=== PATIENT | female | born 1970 | race Caucasian/White ===

== ENCOUNTER 2020-06-05 02:42 | Emergency (ER) | payer MEDICARE, MEDICAID ==
[~2020-06-05] VITALS: Ht 162.6 cm; Wt 60.9 kg
[~2020-06-05 02:42] MED LIST: CYCL-1 PO; HYDR-3965 PO; PSEU120T55 PO; ZOF4T PO
--- NOTE | 2020-06-05 02:49 | NUR ---
ELIZABETH [phone] Addendum: 06/05/20 at 0249 by DIANA [phone]
--- NOTE | 2020-06-05 03:22 | NUR ---
patient assisted to bsc to void. bruise noted to left buttock.
[2020-06-05] MEDS ORDERED: morphine 4 MG/ML inj SYRINge IM ONE (03:40)
--- NOTE | 2020-06-05 04:04 | NUR ---
PATIENTS CO-CONSERVATOR, SUSAN NICHOLSON, [phone], CALLING FOR UPDATE. SHE REPORTS PT WITH A DEVELOPMENT DELAY. DR. RASMUSSEN UPDATED.
--- NOTE | 2020-06-05 04:12 | NUR ---
CONSERVATOR, FRANCO, BROUGHT BACK TO PT'S ROOM. STATES PT HAS 24 HR CAREGIVER AND THAT PT HAS BEEN WEAK LATELY AND HAS FALLEN TWICE TODAY. THEY ARE WORKING ON GETTING HER A WC SHE ONLY HAS A WALKER.
[2020-06-05 04:16] VITALS: BP 158/89
--- NOTE | 2020-06-05 04:39 | NUR ---
PT WITH UNSTEADY ASYMMETRIC GAIT AND HER LEFT LEG IS "NOT WORKINIG RIGHT" PER PATIENT. CONSERVATOR STATES HER GAIT IS MUCH WORSE DURING THIS GAIT TEST. DR. RASMUSSEN AWARE.
--- NOTE | 2020-06-05 04:52 | NUR ---
SUSAN REPORTS PT HAD HEAD SCANS (UNK IF CT OR MRI) AND POSSIBLY ADTL AREAS OF THE BODY IMAGED, ABOUT 3 OR 4 WEEKS AGO. SHE LAST SAW DR. MAURICE LAST WEEK AND HAS A PALLIATIVE CARE RN WHO VISIT HER HOME EVERY THURSDAY. DR. RASMUSSEN UPDATED.
== END 2020-06-05 05:32 | disposition home or self-care (01) ==
LOC: ER 02:42
DX: S30.0XXA Contusion of lower back and pelvis, initial encounter (principal); C50.919 Malignant neoplasm of unspecified site of unspecified female breast; C79.31 Secondary malignant neoplasm of brain; G89.29 Other chronic pain; M25.551 Pain in right hip; I10 Essential (primary) hypertension; J44.9 Chronic obstructive pulmonary disease, unspecified; K21.9 Gastro-esophageal reflux disease without esophagitis; M19.90 Unspecified osteoarthritis, unspecified site; Z90.710 Acquired absence of both cervix and uterus; Z98.890 Other specified postprocedural states; Z91.030 Bee allergy status; Z88.0 Allergy status to penicillin; Z79.899 Other long term (current) drug therapy; W18.39XA Other fall on same level, initial encounter; Y93.89 Activity, other specified; Y92.89 Other specified places as the place of occurrence of the external cause; Y99.8 Other external cause status
CPT/HCPCS: 72170; 73560; 96372; 99284; J2270